=== PATIENT | male | born 1985 | race Asian ===

== ENCOUNTER 2019-05-15 20:39 | Emergency (ER) | payer MEDICAID ==
[~2019-05-15] VITALS: Ht 182.9 cm; Wt 74.9 kg
[2019-05-15 20:41] VITALS: BP 143/94
--- NOTE | 2019-05-15 21:04 | NUR ---
Rib pain reported since yesterday with cough and shallow breathing. 3 witnessed falls today with altered gait. Markings on body indicating recent falls. Difficulty swallowing food and liquid today. Pt is anxious in room during assessment.
[2019-05-15 22:20] LABS: ALBUMIN 4.1 g/dL (3.4-5.0); ANION GAP 6 mmol/L (5-15); CALCIUM 8.2 mg/dL (8.5-10.1); CHLORIDE 104 mmol/L (98-107); CREATININE 0.98 mg/dL (0.7-1.3)
[2019-05-15 22:30] LABS: ALKALINE PHOSPHATASE 69 U/L (45-117); BILIRUBIN,TOTAL 0.5 mg/dL (0.2-1.0)
[2019-05-15 22:38] LABS: MEAN CORPUSCULAR HEMOGLOBIN 32.1 pg (27.5-34.5); MEAN CORPUSCULAR HGB CONC 35.8 g/dL (33.2-36.2); MEAN CORPUSCULAR VOLUME 89.8 fL (81-97); MEAN PLATELET VOLUME 7.9 fL (7.4-10.4); PLATELET COUNT 335 x10^3/uL (130-400); RED BLOOD COUNT 5.12 x10^6/uL (4.38-5.82); RED CELL DISTRIBUTION WIDTH 13.4 % (9.4-14.8)
[2019-05-15 23:15] LABS: BASOPHILS # (AUTO) 0.02 x10^3/uL (0-0.1); BASOPHILS % (AUTO) 0 % (0-1); EOSINOPHILS # (AUTO) 0.09 x10^3/uL (0-0.4); EOSINOPHILS % (AUTO) 1 % (1-7); LYMPHOCYTES # (AUTO) 1.74 x10^3/uL (1-3.4); LYMPHOCYTES % (AUTO) 19 % (22-44); MD SCAN; MONOCYTES # (AUTO) 0.59 x10^3/uL (0.2-0.8); MONOCYTES % (AUTO) 7 % (2-9); NEUTROPHILS # (AUTO) 6.55 x10^3/uL (1.8-6.8); NEUTROPHILS % (AUTO) 73 % (42-75)
[2019-05-15 23:34] LABS: ALANINE AMINOTRANSFERASE 62 U/L (12-78); TOTAL PROTEIN 8.5 g/dL (6.4-8.2)
--- NOTE | 2019-05-16 00:06 | NUR ---
Pt unable to provide urine sample. Pt offered urinal and a hat for the toilet but responds with "I can't do it" to the options provided.
== END 2019-05-16 00:41 | disposition home or self-care (01) ==
LOC: ED 22:55
DX: S09.90XA Unspecified injury of head, initial encounter (principal); R07.89 Other chest pain; W01.0XXA Fall on same level from slipping, tripping and stumbling without subsequent striking against object, initial encounter; Y93.89 Activity, other specified; Y92.098 Other place in other non-institutional residence as the place of occurrence of the external cause; Y99.8 Other external cause status
CPT/HCPCS: 36415; 70450; 71046; 80053; 80307; 84443; 85025; 93005; 99285